=== PATIENT | female | born 1985 | race Caucasian/White ===

== ENCOUNTER → 2019-07-23 | Outpatient (CLI) | payer MEDICAID ==
[2019-07-23 13:46] LABS: BASO % 0.3 % (0.0-1.0); EOS % 0.3 % (0.0-3.0); HEMATOCRIT 41.1 % (36.0-47.0); HEMOGLOBIN 13.8 g/dl (12.0-15.5); LYMPH # 1.6 10^3/uL (1.5-5.0); LYMPH % 17.4 % (24.0-44.0); MEAN CORPUSCULAR HEMOGLOBIN 31.4 pg (27.0-33.0); MEAN CORPUSCULAR HGB CONC 33.6 g/dl (32.0-36.5); MEAN CORPUSCULAR VOLUME 93.4 fl (80.0-96.0); MONO # 0.6 10^3/uL (0.0-0.8); MONO % 6.5 % (0.0-5.0); NEUTROPHILS # 6.7 10^3/uL (1.5-8.5); NEUTROPHILS % 75.2 % (36.0-66.0); PLATELET COUNT, AUTOMATED 281 10^3/uL (150-450)
[2019-07-23 14:50] LABS: HEPATITIS C VIRUS ABY INDEX 0.2 INDEX (<0.8); HIV 1&2 SCREEN CENTAUR NEGATIVE (NEGATIVE); RUBELLA IgG QUALITATIVE IMMUNE (IMMUNE)
[2019-07-23 15:14] LABS: HEMOGLOBIN A1c 5.2 %
[2019-07-23 15:57] LABS: CHLAMYDIA DNA AMPLIFICATION NEGATIVE (NEGATIVE); GC DNA AMPLIFICATION NEGATIVE (NEGATIVE)
== END ==
LOC: M PLALAB 10:50
PROVIDERS: ATTEND Advanced Practice Midwife
DX: O99.211 Obesity complicating pregnancy, first trimester (principal); E66.9 Obesity, unspecified

== ENCOUNTER 2019-08-08 19:24 | Emergency (ER) | payer MEDICAID, OTHER, SELFPAY ==
[~2019-08-08] VITALS: Ht 160 cm; Wt 110.9 kg
[2019-08-08] MEDS ORDERED: PRENTAB9 PO (21:46)
[2019-08-08 22:35] LABS: BASO % 0.2 % (0.0-1.0); EOS % 0.1 % (0.0-3.0); HEMOGLOBIN 14.7 g/dl (12.0-15.5); LYMPH # 1.7 10^3/uL (1.5-5.0); LYMPH % 12.4 % (24.0-44.0); MEAN CORPUSCULAR HEMOGLOBIN 30.3 pg (27.0-33.0); MEAN CORPUSCULAR HGB CONC 33.4 g/dl (32.0-36.5); MEAN CORPUSCULAR VOLUME 90.7 fl (80.0-96.0); MONO # 0.7 10^3/uL (0.0-0.8); NEUTROPHILS # 11.2 10^3/uL (1.5-8.5); NEUTROPHILS % 81.9 % (36.0-66.0); PLATELET COUNT, AUTOMATED 294 10^3/uL (150-450); RED BLOOD COUNT 4.85 10^6/uL (4.00-5.40); WHITE BLOOD COUNT 13.7 10^3/uL (4.0-10.0)
[2019-08-08 23:40] VITALS: BP 137/69
--- NOTE | 2019-08-09 08:09 | REP ---
Emergency first trimester obstetric sonography: Repeat dictation. History: Pelvic cramping. Preliminary report is provided at the time of exam by Dot [email or web address]. Findings: Transabdominal scanning confirms the presence of a single living intrauterine gestation. Embryonic pole measures 47 mm in crown-rump length. This corresponds with a gestational age estimate of 11 weeks 4 days. heart rate is recorded at 168 beats per minute. No subchorionic hemorrhage is seen. No extrauterine abnormalities observed. Impression: Viable single intrauterine gestation at 11 weeks 4 days by crown-rump length. BRENDAN by sonography February 23, 2020. No complication is identified. Electronically Signed by John Tsai MD 08/09/2019 08:01 A
== END 2019-08-08 23:42 | disposition home or self-care (01) ==
LOC: M ED 19:24
DX: O99.611 Diseases of the digestive system complicating pregnancy, first trimester (principal); O34.521 Maternal care for prolapse of gravid uterus, first trimester; Z3A.11 11 weeks gestation of pregnancy; Z87.59 Personal history of other complications of pregnancy, childbirth and the puerperium; Z79.899 Other long term (current) drug therapy; Z88.1 Allergy status to other antibiotic agents

== ENCOUNTER → 2019-10-05 | Outpatient (CLI) | payer MEDICAID ==
[~2019-10-05] MED LIST: PRENTAB9 PO
--- NOTE | 2019-10-05 17:39 | REP ---
Obstetric sonography: History: Supervision of , for anatomy. Findings: Scanning through the gravid uterus demonstrates a viable single intrauterine gestation in a transverse, head to the maternal right lie. motion is observed and heart rate is recorded at 144 beats per minute. An anterior grade 0 placenta is seen without evidence of previa. Amniotic fluid is subjectively normal. Closed cervical length is 3.1 cm measured transabdominally. No extrauterine abnormalities observed. face, right ventricular outflow tract, and spine were less than optimally seen today due to position. The following anatomic structures are identified and felt to be sonographically unremarkable: cranium, choroid plexus, cavum, cerebellum and posterior fossa, four-chamber heart with left ventricular outflow tract view, diaphragm, left-sided stomach, abdominal wall cord insertion, three-vessel cord, kidneys and bladder, upper and lower extremities. Biometry chart: BPD 4.4 cm = 19 weeks 3 days HC 16.2 cm = 19 weeks 0 days AC 13.7 cm = 19 weeks 1 day FL 2.9 cm = 18 weeks 6 days HL 2.8 cm = 18 weeks 6 days CD 1.9 cm = 18 weeks 2 days HC/AC ratio normal 1.19. Cephalic index normal 0.76. Estimated weight 270 grams, 0 pounds 9 ounces, 21st percentile for 19 weeks 6 days. Impression: Viable single intrauterine gestation at 18 weeks 6 days by today's composite sonographic criteria. Expected gestational age estimate based on prior sonography 19 weeks 6 days. BRENDAN by prior sonography February 23, 2020. anatomic survey is less than complete regarding spine, right ventricular cardiac outflow tract, and face visualization.
== END ==
LOC: M WHC 14:54
PROVIDERS: ATTEND Advanced Practice Midwife
DX: O32.2XX0 Maternal care for transverse and oblique lie, not applicable or unspecified (principal); Z36.89 Encounter for other specified antenatal screening; Z3A.18 18 weeks gestation of pregnancy